=== PATIENT | male | born 1965 | race Caucasian/White ===

== ENCOUNTER 2020-02-04 19:22 | Emergency (ER) | payer OTHER ==
[2020-02-04 19:31] VITALS: TEMP 97.6
--- NOTE | 2020-02-04 19:43 | ED.PDOC ---
History of Present Illness - General Chief Complaint: Respiratory Problem Time Seen by Provider: 02/04/20 19:38 Additional Information: Patient is a 54-year-old male who presents to the ED with chief complaint of shortness of breath. Patient indicates the symptoms began this afternoon and are mild and persistent. Patient apparently stopped at a CBD store this afternoon and had CBD oil which was "unlike anything I have ever had before". Patient denies nausea, vomiting, fever, chills, chest pain. Patient denies history of intrinsic heart or lung disease. He is a non-smoker but does dip. Patient has had no known exposure to Covid. Patient has no other concerns at this time. - History of Present Illness Allergies/Adverse Reactions: Allergies NO KNOWN ALLERGY Allergy (Verified 02/04/20 19:33) Home Medications: Ambulatory Orders Albuterol Inhaler [Ventolin Hfa Inhaler] 2 puff INH Q4H PRN #1 inh 02/04/20 Azithromycin [Zithromax Z-Damian] 250 mg PO DAILY #6 tab 02/04/20 Review of Systems - Review of Systems Constitutional: States: no symptoms reported. Denies: chills, fever, weakness Respiratory: States: see HPI, short of breath. Denies: cough, orthopnea Cardiology: States: no symptoms reported. Denies: chest pain, palpitations Gastrointestinal/Abdominal: States: no symptoms reported. Denies: abdominal pain, nausea, vomiting Skin: States: no symptoms reported. Denies: rash Neurological: States: no symptoms reported All other Systems: Reviewed and Negative Past Medical History (General) - Patient Medical History Hx Seizures: No Hx Stroke: No Hx Dementia: No Hx Asthma: No Hx of COPD: No Hx Cardiac Disorders: No Hx Congestive Heart Failure: No Hx Pacemaker: No Hx Hypertension: Yes Hx Thyroid Disease: No Hx Diabetes: No Hx Gastroesophageal Reflux: No Hx Renal Disease: No Hx Cancer: No Hx of HIV: No Hx Hepatitis C: No Hx MRSA: No Surgical History: other - Vaccination History Hx Tetanus, Diphtheria Vaccination: No Hx Influenza Vaccination: No Hx Pneumococcal Vaccination: No - Social History Hx Tobacco Use: Yes Hx Chewing Tobacco Use: Yes Tins Per Day Chewed: 0.5 Hx Alcohol Use: No Hx Substance Use: No Hx Substance Use Treatment: No Hx Depression: No Family Medical History - Family History Mother Family History: Unknown Physical Exam - Physical Exam General Appearance: Alert, Comfortable, No apparent distress, Obese, Well Developed Neck: supple, normal inspection Respiratory: chest non-tender, lungs clear, normal breath sounds, no respiratory distress, no accessory muscle use Cardiovascular/Chest: normal peripheral pulses, regular rate, rhythm, no edema, no gallop, no JVD, no murmur Gastrointestinal/Abdominal: non tender, soft Extremity: non-tender, normal inspection, no pedal edema Neurologic: verify rep II-XII nml as tested, no motor/sensory deficits, alert, normal mood/affect, oriented x 3 Skin Exam: normal color, warm/dry Progress - Progress Progress: 02/04/20 19:44 Differential diagnosis includes but is not limited to Covid, pneumonia, ACS, bronchitis. 02/04/20 19:46 EKG: Normal sinus rhythm, rate 76, normal axis, normal QRS, normal ST segment, normal T waves, negative STEMI. 02/04/20 21:22 Patient reassessed and is feeling well at this time. His labs are unremarkable with the exception of mild leukocytosis which is nonspecific. Patient is Covid negative. In view of patient's elevated WBC, will DC home with Z-Damian and patient to follow-up with his PCP. I discussed with patient strict return to ED precautions to include worsening shortness of breath and difficulty breathing. Vital signs stable, patient is NAD and looks clinically well and I believe is sa fe for discharge with outpatient follow-up. Follow-up instructions, discharge instructions and return to ED precautions discussed with patient. Patient voices understanding and willingness to comply with instructions. All laboratory and radiographic results have been discussed with the patient, and all questions answered. Patient is happy with plan. Departure - Departure Clinical Impression: Suspected 2019 novel coronavirus infection Leukocytosis Qualifiers: Leukocytosis type: unspecified Qualified Code(s): D72.829 - Elevated white blood cell count, unspecified Time of Disposition: 21:24 Disposition: Discharge to Home or Self Care Condition: Fair Departure Forms: ED Discharge - Pt. Copy, Patient Portal Self Enrollment Instructions: Coronavirus Disease 2019 (COVID-19), Acute Bronchitis Referrals: ROBERT ALEXANDER MD [Active Staff] - 1-5 Days Prescriptions: Albuterol Inhaler [Ventolin Hfa Inhaler] 2 puff INH Q4H PRN #1 inh PRN Reason: Shortness Of Breath/Wheezing Azithromycin [Zithromax Z-Damian] 250 mg PO DAILY #6 tab Home Medications: Ambulatory Orders Albuterol Inhaler [Ventolin Hfa Inhaler] 2 puff INH Q4H PRN #1 inh 02/04/20 Azithromycin [Zithromax Z-Damian] 250 mg PO DAILY #6 tab 02/04/20
--- NOTE | 2020-02-04 19:53 | RAD ---
EXAM DESCRIPTION: Chest,1 View CLINICAL HISTORY:54 years Male, SOB Comparison: None FINDINGS: No focal lung consolidation. No pleural effusion. No pneumothorax. Cardiac and mediastinal silhouette is unremarkable. No acute osseous abnormality. Soft tissues are unremarkable. IMPRESSION: No acute findings. No focal lung consolidation. Electronically signed by: Tyson Fabian MD 02/04/2020 7:51 PM [employer]
[2020-02-04 21:32] VITALS: BP 142/80; O2SAT 95
== END 2020-02-04 21:32 | disposition home or self-care (01) ==
LOC: ER 19:22
DX: D72.829 Elevated white blood cell count, unspecified (principal); R06.02 Shortness of breath; F17.220 Nicotine dependence, chewing tobacco, uncomplicated; I10 Essential (primary) hypertension; Z20.828 Contact with and (suspected) exposure to other viral communicable diseases